=== PATIENT | female | born 1945 | race Caucasian/White ===

== ENCOUNTER 2019-04-11 19:27 | Emergency (ER) | payer MEDICARE, BC ==
[~2019-04-11] VITALS: Ht 165.1 cm; Wt 74.8 kg
--- NOTE | 2019-04-11 19:30 | NUR ---
Dr. Jorge at bedside for MSE.
[2019-04-11] MEDS ORDERED: FAMOTIDINE. 20 MG/2 ML VIAL IV ONE (19:51)
[2019-04-11] MEDS ORDERED: methylPREDNISolone SOD SUCC 125 MG/2 ML VIAL ONE (19:51)
[2019-04-11] MEDS: methylPREDNISolone SOD SUCC 125 MG/2 ML VIAL IV ONE (19:57)
[2019-04-11] MEDS: IV NORMAL SALINE 1000 ML BAG IV ONE (19:57)
[2019-04-11 19:59] LABS: BASOPHILS % (AUTO) 0.5 % (0.0-2.0); EOSINOPHILS % (AUTO) 0.6 % (0.0-7.0); HEMATOCRIT 33.8 % (31.2-41.9); HEMOGLOBIN 11.4 g/dL (10.9-14.3); LYMPHOCYTES # (AUTO) 2.5 K/uL (20.0-40.0); LYMPHOCYTES % (AUTO) 33.7 % (20.5-51.5); MEAN CORPUSCULAR HEMOGLOBIN 35.6 uug (24.7-32.8); MEAN CORPUSCULAR HGB CONC 34 g/dL (32.3-35.6); MONOCYTES # (AUTO) 0.3 K/uL (2.0-10.0); MONOCYTES % (AUTO) 4.4 % (0.0-11.0); NEUTROPHILS # (AUTO) 4.4 K/uL (1.8-8.9); NEUTROPHILS % (AUTO) 60.8 % (38.5-71.5); PLATELET COUNT (AUTO) 322 K/uL (179-408); RED BLOOD CELL COUNT(AUTO) 3.19 MIL/uL (3.63-4.92); WHITE BLOOD COUNT (AUTO) 7.3 K/uL (3.8-11.8)
[2019-04-11] MEDS: FAMOTIDINE. 20 MG/2 ML VIAL IV ONE (20:01)
[2019-04-11 20:05] LABS: CARBON DIOXIDE 28 mmol/L (21-32); CHLORIDE 103 mmol/L (98-107); CREATININE 0.7 mg/dL (0.6-1.3); GLUCOSE 156 mg/dL (74-106); POTASSIUM 3.3 mmol/L (3.5-5.1); UREA NITROGEN, BLOOD 19 mg/dL (7-18)
--- NOTE | 2019-04-11 21:20 | NUR ---
Patient discharged to home in stable conditon. Written and verbal after care instructions given. Patient verbalizes understanding of instructions. Pt ambulated out of ER with steady gait, no acute signs of distress, VSS, all belongings taken, IV site discontinued. Pt to be driven home by via private vehicle.
[2019-04-11 21:22] VITALS: BP 105/60
== END 2019-04-11 21:22 | disposition home or self-care (01) ==
LOC: ER 19:31
DX: T78.3XXA Angioneurotic edema, initial encounter (principal); T78.1XXA Other adverse food reactions, not elsewhere classified, initial encounter; X58.XXXA Exposure to other specified factors, initial encounter; E03.9 Hypothyroidism, unspecified
CPT/HCPCS: 36415; 80048; 84484; 85025; 96361; 96374; 99283; J2930; 70030-TC; A4663; J3490; J7030